=== PATIENT | male | born 1960 | race Caucasian/White ===

== ENCOUNTER 2017-04-10 05:45 | Day surgery (SDC) | payer OTHER ==
[2017-03-28 13:22] VITALS: BMI 26.9
[2017-04-10] MEDS ORDERED: MIDAZOLAM HCL 2 MG/2 ML SINGLE DOSE VIAL ONE (06:49)
[2017-04-10] MEDS ORDERED: ROPIVACAINE HCL 0.5% 30ML VIAL ONE (06:50)
[2017-04-10] MEDS ORDERED: DEXAMETHASONE SOD PHOSPHATE/PF 10 MG/ML SDV ONE (06:50)
[2017-04-10] MEDS ORDERED: ROPIVICAINE 0.2%/MORPH PF/KETOROLAC - 51ML DISP.SYRINGE IA ONE ×3 (07:05→09:54)
[2017-04-10] MEDS ORDERED: oxyCODONE HCL 10 MG SUSTAINED ACTING TABLET ONE (07:32)
[2017-04-10] MEDS ORDERED: GABAPENTIN 300 MG CAPSULE (FP) ONE (07:32)
[2017-04-10] MEDS ORDERED: CELECOXIB 200 MG CAPSULE ONE (07:33)
[2017-04-10] MEDS ORDERED: TRANEXAMIC ACID 1000 MG/10 ML VIAL IVPUSH ONE (07:36)
[2017-04-10] MEDS ORDERED: CEFAZOLIN 2 GM in DEXTROSE 5%-WATER - 50 ML IVPB ONE (07:36)
[2017-04-10] MEDS: GABAPENTIN 300 MG CAPSULE (FP) PO ONE ×2 (07:40→12:49)
[2017-04-10] MEDS: CELECOXIB 200 MG CAPSULE PO ONE ×2 (07:40→12:49)
[2017-04-10] MEDS: oxyCODONE HCL 10 MG SUSTAINED ACTING TABLET PO ONE ×2 (07:40→12:49)
[2017-04-10] MEDS ORDERED: TRANEXAMIC ACID 1000 MG/10 ML VIAL ONE (08:02)
[2017-04-10] MEDS ORDERED: ONDANSETRON 4 MG/2 ML VIAL ONE (08:02)
[2017-04-10] MEDS ORDERED: DEXAMETHASONE SOD PHOSPHATE 4 MG/1 ML VIAL ONE (08:02)
[2017-04-10] MEDS ORDERED: PROPOFOL 20 ML ONE (08:18)
[2017-04-10] MEDS ORDERED: SODIUM CHLORIDE 0.9% P/F 10 ML VIAL IJ ONE (08:52)
[2017-04-10] MEDS ORDERED: ceFAZolin SODIUM 1 GM VIAL ONE ×2 (08:52→08:53)
[2017-04-10] MEDS ORDERED: LIDOCAINE HCL/PF 2% SDV 5ML VIAL ONE (08:57)
[2017-04-10] MEDS ORDERED: ONDANSETRON 4 MG/2 ML VIAL IVPUSH PRN (09:04)
[2017-04-10] MEDS ORDERED: oxyCODONE HCL 5 MG TABLET PO PRN ×2 (09:05)
[2017-04-10] MEDS ORDERED: SENNOSIDES/DOCUSATE COMBO (SENNA PLUS) TABLET (UD) PO PRN (10:07)
--- NOTE | 2017-04-10 10:16 | OP ---
Operative Note - Note: Operative Date: 04/10/17 Pre-Operative Diagnosis: Left knee medial osteoarthritis Operation: Left knee partial knee replacement makoplasty Implants: femoral and tibial components with spacer Post-Operative Diagnosis: Same as Pre-op Surgeon: Diallo Bolaños Event Operations Manager: Jing Fuentes Anesthesiologist/ASSOCIATE FINANCIAL REPRESENTATIVE: Liberty Shannon Anesthesia: Epidural, Fractional Estimated Blood Loss (mls): 50
[2017-04-10] MEDS ORDERED: MAG HYDROX/AL HYDROX/SIMETH 30 ML UNIT-DOSE CUP PO PRN (10:17)
[2017-04-10] MEDS ORDERED: LACTATED RINGERS SOLUTION 1,000 ML IV SCH (10:30)
[2017-04-10] MEDS ORDERED: ACETAMINOPHEN 325 MG TABLET (FP) ONE (10:48)
[2017-04-10] MEDS: ACETAMINOPHEN 325 MG TABLET (FP) PO SCH ×4 (11:11→21:14)
[2017-04-10] MEDS: oxyCODONE HCL 10 MG SUSTAINED ACTING TABLET PO SCH ×2 (12:50→21:16)
[2017-04-10] MEDS: LACTATED RINGERS SOLUTION 1,000 ML IV SCH (12:50)
--- NOTE | 2017-04-10 14:23 | OP ---
DATE OF OPERATION: DATE OF DICTATION: 04/10/2017 PREOPERATIVE DIAGNOSIS: Left knee osteoarthritis. POSTOPERATIVE DIAGNOSES: Left knee osteoarthritis, 3-degree flexion contracture , and 3 degrees of varus. OPERATION PERFORMED: Left cemented medial compartment partial knee replacement with [employer] robot. SURGEON: Diallo Bolaños MD INDEPENDENT FREIGHT AGENT: ARMANDO Ragsdale TYPE OF ANESTHESIA: Spinal. DISPOSITION: Patient returned to recovery room in stable condition. COMPONENTS USED: [place] Restoris size 6 left medial femoral component, 7 left medial tibial component, and 8-mm polyethylene. DRAINS PLACED: None. ESTIMATED BLOOD LOSS: Less than 50 mL. TOTAL TOURNIQUET TIME: 100 minutes. PREOPERATIVE RANGE OF MOTION: 6 degrees of varus and 6-degree flexion contracture. FINDINGS: Severe end-stage arthritis of the medial compartment and about 50% grade 2 to 3 changes in the trochlea. INDICATION FOR THE PROCEDURE: Patient failed nonoperative treatment for left knee arthritis for greater than 6 months, including injections, therapy, and nonsteroidal antiinflammatories. Continued to have pain and we discussed either total versus partial knee replacement and the pros and cons of both preoperatively in the waiting area as well as in the office. We had a long discussion regarding the plan, the expected outcome, and the risks, benefits, and alternatives of surgery. The risks include, but are not limited to, infection which may require future surgery and removal of the implants, bleeding which may require transfusion, damage to nerves, arteries, veins, tendons, muscles, or other adjacent structures leading to possible numbness, weakness, decreased function, and/or possible need for surgical repair. Also discussed was the possibility of intraoperative and postoperative fractures , implant loosening, stiffness, the need for extensive therapy, the need for revision for a variety of reasons such as progression of arthritis or need for conversion to total knee replacement potentially in the near future. We also discussed blood clots and other medical complications. This was discussed at length and consent was obtained. PROCEDURE IN DETAIL: Patient was taken to the operating room and placed on the operating table in the supine position. Following induction of spinal anesthesia, a well-padded tourniquet was placed on the left thigh and the left lower extremity prepped and draped in a sterile fashion. A timeout was performed to confirm the correct side, verify that the site was marked, and confirm the correct patient and procedure to be performed as well as that the patient received the appropriate preoperative antibiotics and tranexamic acid and had a compression device on the nonoperative leg. The tourniquet was elevated followed by a midline incision and a medial parapatellar arthrotomy. We placed our 2 checkpoints and placed 2 pins in the distal femur and 2 pins in the proximal tibia through stab incisions after bluntly dissecting down to bone. The patient was then registered using the checkpoints and range of motion and stress and points on the femur and tibia. We then made our preoperative plan and while protecting the surrounding soft tissues we burred the femoral and then tibial components while protecting the surrounding soft tissues in accordance with our plan. We removed the medial meniscus and copiously irrigated the knee and trialed with our final implants listed above. With our trials in, there was good stability, range of motion, soft tissue tension, and the patella tracked centrally. We checked this with the [employer] robot and reproduced our preoperative plan. Trials were then removed and then the knee was copiously irrigated. Sequential cementation was performed starting with the tibia and then the femur. We inserted a trial poly. We removed all excess cement when the cement was hardened. We confirmed once again that we had reproduced our preoperative plan with our range of motion and alignment and stability and soft tissue tension and we took out the trial poly, made sure all cement was removed from the back of the knee, inserted the final poly and seated flush with the final implants in. We had good stability, range of motion , and soft tissue tension, and tracking. The knee was once again copiously irrigated. The arthrotomy was closed with No. 1 Vicryl. Skin was closed with 2-0 Vicryl and otto. This was all done after retractors were then removed. A local anesthetic was injected prior to skin closure. A dry sterile compressive dressing was placed and the tourniquet was released. Compartments were soft at the end of the procedure and pulses were palpated. X- rays were taken which I reviewed and showed appropriate position of all final implants. WOUND CLASSIFICATION: Clean. COMPLICATIONS: None. SPECIMENS: None. Selene [id number] MTDD
[2017-04-10] MEDS: CEFAZOLIN 2 GM/D5W 50 ML IVPB SCH (17:56)
[2017-04-10] MEDS: CELECOXIB 200 MG CAPSULE PO SCH (21:15)
[2017-04-10] MEDS: NEBIVOLOL 5 MG TABLET (FP) PO SCH (21:15)
[2017-04-10] MEDS: EZETIMIBE 10 MG TABLET (FP) PO SCH (21:16)
[2017-04-10] MEDS: GABAPENTIN 300 MG CAPSULE (FP) PO SCH (21:16)
[2017-04-10] MEDS ORDERED: ATORVASTATIN CA 20 MG TABLET (FP) PO SCH (22:00)
[2017-04-11] MEDS: CEFAZOLIN 2 GM/D5W 50 ML IVPB SCH (02:40)
[2017-04-11] MEDS: ACETAMINOPHEN 325 MG TABLET (FP) PO SCH ×2 (03:13→09:44)
[2017-04-11 06:23] VITALS: BP 111/63; PULSE 71; TEMP 97.4
[2017-04-11] MEDS: GABAPENTIN 300 MG CAPSULE (FP) PO SCH (09:44)
[2017-04-11] MEDS: oxyCODONE HCL 10 MG SUSTAINED ACTING TABLET PO SCH (09:45)
[2017-04-11] MEDS: CELECOXIB 200 MG CAPSULE PO SCH (09:45)
[2017-04-11] MEDS: EZETIMIBE 10 MG TABLET (FP) PO SCH (09:46)
[2017-04-11] MEDS: LACTATED RINGERS SOLUTION 1,000 ML IV SCH (09:46)
[2017-04-11] MEDS: NEBIVOLOL 5 MG TABLET (FP) PO SCH (09:48)
[2017-04-11] MEDS ORDERED: amLODIPine BESYLATE 10 MG TABLET (FP) PO SCH (10:00)
[2017-04-11] MEDS ORDERED: ASPIRIN 325 MG TABLET PO SCH (10:00)
[2017-04-11] MEDS ORDERED: PANTOPRAZOLE 40 MG TABLET (FP) PO SCH (10:00)
--- NOTE | 2017-04-11 11:11 | PN ---
Progress Note (short form) - Note Progress Note: Anesthesia post op note: POD#1 S/P left knee partial arthroplasty under spinal and regional anesthesia. Pat seen and examined. VSS. Pain 0-07/03. PT today. Comfortable. Neurologic intact.No post anesthesia complications.Signed off.
== END 2017-04-11 13:14 | disposition home health service (06) ==
LOC: FASU 05:45 → FM/S 12:19 → FASU 04-11 13:14
PROVIDERS: ATTEND Orthopaedic Surgery
PROC: 8E0YXBZ Computer Assisted Procedure of Lower Extremity (ICD-10-PCS; 2017-04-10)
PROC: 8E0Y0CZ Robotic Assisted Procedure of Lower Extremity, Open Approach (ICD-10-PCS; 2017-04-10)
PROC: 0SRD0L9 Replacement of Left Knee Joint with Medial Unicondylar Synthetic Substitute, Cemented, Open Approach (ICD-10-PCS; principal; 2017-04-10 08:00)
DX: M17.12 Unilateral primary osteoarthritis, left knee (principal)
CPT/HCPCS: 20985; 27446; C1776; S2900; 73560-TC-LT; 94010; 94760; 97116-GP; 97162-GP